=== PATIENT | female | born 1980 | race African-American/Black ===

== ENCOUNTER 2016-08-29 12:16 | Emergency (ER) | payer OTHER ==
[~2016-08-29] VITALS: Ht 167.6 cm; Wt 99.0 kg
[2016-08-29 12:29] VITALS: BP 111/74
--- NOTE | 2016-08-29 12:51 | NUR ---
PT TO BED 8 AT THIS TIME,.
[2016-08-29] MEDS ORDERED: METHOCARBAMOL 500 MG TAB PO ONE (13:00)
--- NOTE | 2016-08-29 13:04 | NUR ---
36/F BIB FAMILY C/O LEFT CALF PAIN x YESTERDAY 629. PAIN 9/10 THROBBING SHARP NON-RADIATING. PT DENIES TRAUMA OR INJURY. NO REDNESS,NO INCREASED WARMTH, NO SWELLING NOTED. PT STATES SHE WAS SEEN BY PMD AND GOT REFERRED TO ER. ERMD NOTIFIED OF PATIENT STATUS.
--- NOTE | 2016-08-29 13:15 | NUR ---
Patient being evaluated by physician at bedside.
[2016-08-29 14:37] VITALS: BP 110/72
--- NOTE | 2016-08-29 14:37 | NUR ---
Patient discharged with v/s stable. Written and verbal after care instructions given and explained. Patient alert, oriented and verbalized understanding of instructions. Ambulatory with steady gait. All questions addressed prior to discharge. ID band removed. Patient advised to follow up with PMD. Rx of MOTRIN 600MG AND ROBAXIN 500MG given. Patient educated on indication of medication including possible reaction and side effects. Opportunity to ask questions provided and answered.
== END 2016-08-29 14:37 | disposition home or self-care (01) ==
LOC: MED 12:16
DX: M79.662 Pain in left lower leg (principal); G43.909 Migraine, unspecified, not intractable, without status migrainosus; Z98.51 Tubal ligation status
CPT/HCPCS: 81025; 93971; 99284; Q0092